=== PATIENT | female | born 1995 | race Caucasian/White ===

== ENCOUNTER 2017-02-21 12:47 | Emergency (ER) | payer OTHER ==
[~2017-02-21] VITALS: Ht 167.6 cm; Wt 92.0 kg
[2017-02-21 12:50] VITALS: BP 128/67; PULSE 73; RESP 15; TEMP 98.5; O2SAT 93
[2017-02-21] MEDS ORDERED: SPIR50TA PO (13:02)
[2017-02-21] MEDS ORDERED: birth contro (13:02)
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
== END 2017-02-21 13:49 | disposition home or self-care (01) ==
LOC: PHEFT 12:47
DX: S00.83XA Contusion of other part of head, initial encounter (principal); S06.0X0A Concussion without loss of consciousness, initial encounter; V43.52XA Car driver injured in collision with other type car in traffic accident, initial encounter
CPT/HCPCS: 99283